=== PATIENT | female | born 1950 | race Caucasian/White ===

== ENCOUNTER → 2017-04-19 | Outpatient (CLI) | payer OTHER ==
[~2017-04-19] MED LIST: AMLO2.5T PO; ASPI81TA28 PO; CALC500C70 PO; CYCL10TA6 PO; FLUT0.0529 NAE; HYDR-5688 PO; INDSR80 PO; LISI-787 PO; PRLSR20 PO
--- NOTE | 2017-04-19 12:35 | MAMMOGRAPHY REPORT ---
BILATERAL DIGITAL SCREENING MAMMOGRAM WITH CAD: 04/19/2017 CLINICAL HISTORY: Routine screening. TECHNIQUE: Current study was also evaluated with a Computer Aided Detection (CAD) system. Bilateral CC and MLO views were obtained. COMPARISON: Comparison is made to exams dated: 04/17/2016 mammogram, 04/15/2015 mammogram, 01/13/2014 mamm ogram, 12/26/2012 mammogram, 05/29/2011 mammogram, and 05/02/2010 mammogram - [facility]. BREAST COMPOSITION: The tissue of both breasts is almost entirely fatty. FINDINGS: No suspicious masses, calcifications, or areas of architectural distortion are noted in ei ther breast. There has been no significant interval change compared to prior exams. Scattered bilater al benign-appearing calcifications are not significantly changed. IMPRESSION: ACR BI-RADS CATEGORY 2: BENIGN There is no mammographic evidence of malignancy. A 1 year screening mammogram is recommended. The pa tient will receive written notification of the results. Approximately 10% of breast cancers are not detected with mammography. A negative mammographic report should not delay biopsy if a clinically suggestive mass is present. Viki Meadows M.D. /:04/19/2017 12:16:34 Assistant Scientist: Thiago WHITTEN(Felicitas)(M), [facility] letter sent: Normal 1/2 BI-RADS Code: ACR BI-RADS Category 2: Benign
== END | disposition home or self-care (01) ==
LOC: C.MAMM 10:54
PROVIDERS: ATTEND Internal Medicine
DX: Z12.31 Encounter for screening mammogram for malignant neoplasm of breast (principal)

== ENCOUNTER 2017-07-15 05:59 | Emergency (ER) | payer OTHER ==
[~2017-07-15] VITALS: Ht 162.6 cm; Wt 135.0 kg
[2017-07-15 06:04] VITALS: TEMP 36.8; Ht 162.6 cm; Wt 135.0 kg
[2017-07-15] MEDS ORDERED: KETOROLAC TROMETHAMINE 30 MG/ML VIAL IV STA (06:38)
--- NOTE | 2017-07-15 06:39 | EMERGENCY ROOM VISIT NOTE ---
ED Visit Note First contact with patient: 06:18 Resident Physician Supervision Note: I interviewed and examined the patient. Discussed with Dr. Borrego and agree with findings and plan as documented in the note. Documented By: Casey Franks Current/Historical Medications Scheduled Amlodipine (Norvasc), 2.5 MG PO DAILY Aspirin (Aspirin Ec), 81 MG PO DAILY Calcium/Vitamin D (Os-Luis Angel 500 Plus D), 1 TAB PO DAILY Fluticasone Propionate (Nasal) (Flonase), 2 SPRAYS DESTINEY DAILY Lisinopril/Hctz (Zestoretic 20MG/12.5MG), 1 TAB PO BID Omeprazole (Prilosec), 20 MG PO BID Propranolol La (Inderal La *), 80 MG PO DAILY Scheduled PRN Cyclobenzaprine Hcl (Flexeril), 10 MG PO TID PRN for MUSCLE SPASMS Hydrocodone/Acetaminophen 5MG/325MG ([place] 5MG/325MG), 1-2 TABLETS PO Q6 PRN for Pain Allergies Coded Allergies: Codeine (Verified Allergy, Unknown, 10/22/13) Penicillins (Verified Allergy, Unknown, 10/22/13) Vital Signs Date Time Temp Pulse Resp B/P (MAP) Pulse Ox O2 Delivery O2 Flow Rate FiO2 07/15/17 06:04 36.8 76 18 175/93 98 Room Air Departure Information Referrals Nazia Chen M.D. (PCP) Patient Instructions My [facility]
[2017-07-15] MEDS ORDERED: TRAMADOL HCL 50 MG TAB PO STA (06:57)
[2017-07-15] MEDS ORDERED: LISI40TA PO (06:59)
[2017-07-15] MEDS ORDERED: ATOR-22 PO (06:59)
[2017-07-15] MEDS ORDERED: POLY335019 PO (07:01)
[2017-07-15] MEDS ORDERED: ASPCH81X PO (07:01)
[2017-07-15] MEDS ORDERED: TRAM-10 PO (07:02)
[2017-07-15] MEDS ORDERED: ALLO300T2 PO (07:02)
[2017-07-15] MEDS ORDERED: AMLO-110 PO (07:02)
[2017-07-15] MEDS ORDERED: METO25TA3 PO (07:02)
[2017-07-15] MEDS ORDERED: GABA-113 PO (07:02)
[2017-07-15] MEDS ORDERED: FURO-85 PO (07:02)
[2017-07-15] MEDS ORDERED: POTA10CA28 PO (07:02)
--- NOTE | 2017-07-15 07:20 | DIAGNOSTIC IMAGING REPORT ---
LUMBAR SPINE 2 OR 3 VIEWS HISTORY: 67 years-old Female lower back pain acute low back pain without trauma. Pain radiates into the right leg. COMPARISON: None available TECHNIQUE: 3 views of the lumbar spine FINDINGS: There are 5 lumbar type vertebral segments present. The bones appear mildly demineralized. No acute fracture or compression deformity identified. Multilevel endplate spurring, intervertebral disc space narrowing and facet arthropathy is noted. There is severe intervertebral disc space narrowing at T11-T12 and L2-L3. Severe facet arthrosis is noted at L4-L5 and L5-S1. 12 mm anterolisthesis L4 on L5 without pars defects identified is noted. Multilevel endplate spurring is seen at several levels. Vascular calcifications are noted. IMPRESSION: 1. No acute fracture of the lumbar spine. 2. Multilevel endplate spurring, intervertebral disc space narrowing and facet arthropathy as above. 3. 12 mm anterolisthesis L4 on L5 is likely secondary to long-standing severe facet arthropathy. The above report was generated using voice recognition software. It may contain grammatical, syntax or spelling errors. Electronically signed by: Pa Randall M.D. 07/15/2017 7:19 AM Dictated Date/Time: 07/15/2017 7:16 AM
--- NOTE | 2017-07-15 07:29 | EMERGENCY ROOM VISIT NOTE ---
History First contact with patient: 06:19 Chief Complaint: BACK PAIN Stated Complaint: LWR RIGHT BACK PAIN DOWN INTO LEG,RT LEG NUMBNESS History of Present Illness The patient is a 67 year old female who presents to the Emergency Room with complaints of right lower back pain radiating down her leg and into her knee. Patient reports a PMH of chronic lower back pain, but denies having pain this severe. She reports that the pain began on Saturday following bending over to put on her pants. She states that since Saturday evening the pain has gotten worse, making it difficult to ambulate or lay flat. She gets relief by sitting upright in a chair. Patient took NSAIDs and a muscle relaxants without relief yesterday and decided to come to ED this morning. There is no overlying rash, no redness warmth. Patient denies fever, abdominal pain, n/v/d. Patient denies saddle anesthesia, urinary or fecal incontinence. Patient describes the pain as sharp, radiating down her leg. She also describes some pain in her groin. Patient endorses dysuric symptoms, but denies hematuria. Review of Systems see below Constitutional: No fever, No chills, No sweats Respiratory: No cough, No sputum, No wheezing Cardiovascular: No chest pain, No orthopnea, No edema Abdomen: No pain, No nausea, No vomiting, No diarrhea Genitourinary - Female: + dysuria, + urinary frequency, No urinary incontinence, No hematuria Social History Smoking Status: Never Smoker Alcohol Use: none Marital Status: Occupation Status: retired Current/Historical Medications Scheduled Allopurinol (Zyloprim), 300 MG PO DAILY Amlodipine (Norvasc), 5 MG PO DAILY Aspirin (Aspirin Chewable), 81 MG PO DAILY Atorvastatin (Lipitor), 20 MG PO DAILY Furosemide (Lasix), 20 MG PO MWF Gabapentin (Neurontin), 300 MG PO TID Ibuprofen (Ibuprofen), 800 MG PO TID Lidocaine (Lidoderm Patch 5%), 1 PATCH BT DAILY Lisinopril (Zestril), 40 MG PO DAILY Metoprolol Succ (Toprol Xl) (Toprol-Xl), 25 MG PO DAILY Omeprazole (Prilosec), 20 MG PO BID Oxycodone/Acetaminophen 5MG/325MG (Percocet 5MG/325MG), 1 TAB PO TID Polyethylene Glycol 3350 (Miralax), 17 GM PO DAILY Potassium Chloride (Micro-K Ext Rel), 10 MEQ PO MWF Sulfa/Trimethoprim (Bactrim Ds 800MG/160MG), 1 TAB PO BID Scheduled PRN Tramadol (Ultram), 50 MG PO Q6 PRN for Pain Physical Exam Vital Signs Date Time Temp Pulse Resp B/P (MAP) Pulse Ox O2 Delivery O2 Flow Rate FiO2 07/15/17 10:46 73 18 148/92 97 07/15/17 08:42 63 18 130/71 97 Room Air 07/15/17 06:04 36.8 76 18 175/93 98 Room Air Physical Exam see below General Appearance: WD/WN, + obese Head: normocephalic, atraumatic Respiratory/Chest: chest non-tender, lungs clear, normal breath sounds, no respiratory distress, no accessory muscle use Cardiovascular: regular rate, rhythm, no edema, no gallop, no JVD, no murmur Abdomen / GI: normal bowel sounds, non tender, soft, no organomegaly, + distended Back: no CVA tenderness, + decreased range of motion, + paravertebral tenderness (right lumbar, right gluteal tenderness), + pertinent finding ( positive straight leg ) Neurologic/Psych: alert, normal mood/affect, normal reflexes Medical Decision & Procedures ER Provider Diagnostic Interpretation: LUMBAR SPINE 2 OR 3 VIEWS HISTORY: 67 years-old Female lower back pain acute low back pain without trauma. Pain radiates into the right leg. COMPARISON: None available TECHNIQUE: 3 views of the lumbar spine FINDINGS: There are 5 lumbar type vertebral segments present. The bones appear mildly demineralized. No acute fracture or compression deformity identified. Multilevel endplate spurring, intervertebral disc space narrowing and facet arthropathy is noted. There is severe intervertebral disc space narrowing at T11-T12 and L2-L3. Severe facet arthrosis is noted at L4-L5 and L5-S1. 12 mm anterolisthesis L4 on L5 without pars defects identified is noted. Multilevel endplate spurring is seen at several levels. Vascular calcifications are noted. IMPRESSION: 1. No acute fracture of the lumbar spine. 2. Multilevel endplate spurring, intervertebral disc space narrowing and facet arthropathy as above. 3. 12 mm anterolisthesis L4 on L5 is likely secondary to long-standing severe facet arthropathy. Laboratory Results Test 07/15/17 07:50 Urine Color YELLOW Urine Appearance CLEAR (CLEAR) Urine pH 6.0 (4.5-7.5) Urine Specific [place] 1.022 (1.000-1.030) Urine Protein NEG (NEG) Urine Glucose (UA) NEG (NEG) Urine Ketones NEG (NEG) Urine Occult Blood TRACE (NEG) Urine Nitrite NEG (NEG) Urine Bilirubin NEG (NEG) Urine Urobilinogen NEG (NEG) Urine Leukocyte Esterase MODERATE (NEG) Urine WBC (Auto) 5-10 /hpf (0-5) Urine RBC (Auto) 5-10 /hpf (0-4) Urine Hyaline Casts (Auto) 1-5 /lpf (0-5) Urine Epithelial Cells (Auto) >30 /lpf (0-5) Urine Bacteria (Auto) 1+ (NEG) Medications Administered Medications (Trade) Dose Ordered Sig/Vivien Route Start Time Stop Time Status Last Admin Dose Admin Ketorolac Tromethamine (Toradol Inj) 30 mg NOW STAT IV 07/15/17 06:38 07/15/17 06:44 DC 07/15/17 06:52 30 MG Tramadol HCl (Ultram Tab) 50 mg NOW STAT PO 07/15/17 06:57 07/15/17 07:00 DC 07/15/17 07:27 50 MG Lidocaine (Lidoderm Patch 5%) 1 patch QAM STAT TD 07/15/17 07:53 07/15/17 07:57 DC 07/15/17 08:04 1 PATCH Hydromorphone HCl (Dilaudid Inj) 1 mg NOW STAT IM 07/15/17 07:57 07/15/17 07:59 DC 07/15/17 08:05 1 MG Dexamethasone Sodium Phosphate (Dexamethasone Inj Pf) 10 mg STK-MED ONCE .ROUTE 07/15/17 08:00 07/15/17 08:01 DC 07/15/17 08:04 10 MG Trimethoprim/ Sulfamethoxazole (Septra 400/80MG Tab) 1 tab Q12H STAT PO 07/15/17 08:21 07/15/17 08:25 DC 07/15/17 08:44 1 TAB ED Course 700 performed history and physical 715 Ordered Lumbar Xray, Toradol, tramadol, Decadron 7:25 Accessed Lumbar Xray report 800 reaccessed patient; still in pain 1000 discussed lab findings, starting patient on Bactrim 1030 patient pain is improving, dcing patient with close follow up with Dr. Carpenter Medical Decision 67 yo female with two days of right lower back pain radiating down her right leg and into her knee. Considering the following differential; back strain, acute disc herniation, OA, spinal stenosis, infection, malignancy, renal stones , UTI Lumbar Xray showed: 1. No acute fracture of the lumbar spine. 2. Multilevel endplate spurring, intervertebral disc space narrowing and facet arthropathy as above. 3. 12 mm anterolisthesis L4 on L5 is likely secondary to long-standing severe facet arthropathy. UA was remarkable for infection Patient declined MRI because of claustrophobia. No further imaging obtained. Patient pain was controlled with; Decadron, Toradol, Tramadol and lidocaine patch Treated patient with Bactrim 160/800 14 days BID for UTI Discussed options with patient; outpatient rehab vs close follow up with orthopedics. Through shared decision-making, patient elected to follow up with ortho, Dr. Carpenter tomorrow morning. Patient was instructed to use the lidocaine patch and to take ibuprofen in the outpatient. She was also provided a short term script for Percocet, 12 tabs. Impression Primary Impression: Sciatica Departure Information Prescriptions Oxycodone/Acetaminophen 5MG/325MG (PERCOCET 5MG/325MG) Tab 1 TAB PO TID for 7 Days, #12 TAB PAIN Prov: Derik Borrego M.D. 07/15/17 Sulfa/Trimethoprim (Bactrim Ds 800MG/160MG) Tab 1 TAB PO BID for 14 Days, #28 TAB Prov: Derik Borrego M.D. 07/15/17 Ibuprofen (IBUPROFEN) 200 Mg Cap 800 MG PO TID for 30 Days, #360 TABS Prov: Derik Borrego M.D. 07/15/17 Lidocaine (Lidoderm Patch 5%) 1 Ea Tdsy 1 PATCH BT DAILY for Pain for 30 Days, #30 PATCH 3 Refills Prov: Derik Borrego M.D. 07/15/17 Referrals Nazia Chen M.D. (PCP) [facility]ructions [facility]
[2017-07-15] MEDS ORDERED: HYDROmorphone INJ 1 MG/ML SYR IV STA (07:46)
[2017-07-15] MEDS ORDERED: LIDODERM (LIDOCAINE) PATCH 5% TD STA (07:53)
[2017-07-15] MEDS ORDERED: DEXAMETHASONE SOD INJ 4 MG/ML 5 ML VIAL IM STA (07:53)
[2017-07-15] MEDS ORDERED: HYDROmorphone INJ 1 MG/ML SYR IM STA (07:57)
[2017-07-15] MEDS ORDERED: DEXAMETHASONE **PF** INJ 10 MG/ML VIAL ONE (08:00)
[2017-07-15 08:05] LABS: MANUAL MICROSCOPIC REQUIRED? NO; REVIEW REQ? NO; URINE APPEARANCE CLEAR (CLEAR); URINE BILIRUBIN NEG (NEG); URINE COLOR YELLOW; URINE EPITHELIAL CELL AUTO >30 /lpf (0-5); URINE NITRITE NEG (NEG); URINE SPECIFIC GRAVITY 1.022 (1.000-1.030); UROBILINOGEN NEG (NEG)
[2017-07-15] MEDS ORDERED: SULFAMETHOXAZOLE/TRIMETHOPRIM 400/80MG TAB PO STA (08:21)
[2017-07-15] MEDS ORDERED: IBUP1CAP9 PO (09:59)
[2017-07-15] MEDS ORDERED: NF656 BT (09:59)
[2017-07-15] MEDS ORDERED: OXYC-57 PO ×2 (09:59→10:31)
[2017-07-15] MEDS ORDERED: SULF800T23 PO (10:09)
[2017-07-15 10:46] VITALS: BP 148/92; PULSE 73; O2SAT 97
== END 2017-07-15 10:46 | disposition home or self-care (01) ==
LOC: C.EDB 06:01
DX: M54.41 Lumbago with sciatica, right side (principal); M43.16 Spondylolisthesis, lumbar region; M51.36 Other intervertebral disc degeneration, lumbar region; G89.29 Other chronic pain; Z79.82 Long term (current) use of aspirin; Z79.1 Long term (current) use of non-steroidal anti-inflammatories (NSAID)

== ENCOUNTER 2017-07-29 13:22 | Emergency (ER) | payer OTHER ==
[~2017-07-29] VITALS: Ht 162.6 cm; Wt 134.0 kg
[~2017-07-29 13:22] MED LIST changes: +ALLO300T2 PO; +AMLO-110 PO; -AMLO2.5T PO; +ASPCH81X PO; -ASPI81TA28 PO; +ATOR-22 PO; -CALC500C70 PO; -CYCL10TA6 PO; -FLUT0.0529 NAE; +FURO-85 PO; +GABA-113 PO; -HYDR-5688 PO; +IBUP1CAP9 PO; -INDSR80 PO; -LISI-787 PO; +LISI40TA PO; +METO25TA3 PO; +NF656 BT; +OXYC-57 PO; +POLY335019 PO; +POTA10CA28 PO; +SULF800T23 PO; +TRAM-10 PO
[2017-07-29 13:24] VITALS: TEMP 36.6; Ht 162.6 cm; Wt 134.0 kg
[2017-07-29] MEDS ORDERED: METH4PAK PO ×2 (13:42→14:07)
[2017-07-29] MEDS ORDERED: DEXAMETHASONE SOD INJ 4 MG/ML VIAL IV STA (13:56)
[2017-07-29] MEDS ORDERED: DEXAMETHASONE **PF** INJ 10 MG/ML VIAL IM STA (13:58)
--- NOTE | 2017-07-29 13:58 | EMERGENCY ROOM VISIT NOTE ---
ED Visit Note First contact with patient: 13:34 CHIEF COMPLAINT: Flareup of chronic low back pain HISTORY OF PRESENT ILLNESS: This 67-year-old female patient presents to the emergency department, ambulatory, complaining of pain in the right low back which began last night. The patient was seen here in the emergency department recently where an x-ray was performed. The patient is currently under the care of Dr. Carpenter. She states over the past few weeks, she has been onto Medrol Dosepaks, Lidoderm patches, and occasional pain medicine. She states the Medrol Dosepak's are the only things which seemed to help her pain. The patient finished her last course yesterday, and states last night, she began experiencing worsening flareup of her back pain. The patient did call Dr. Carpenter's office, but was told that he is in surgery, and the office staff will be unable to reach him until tomorrow. The patient states the pain is severe, and she could not wait until tomorrow. The patient has taken no OTC medications , and while she does have Lidoderm patches at home, she did not place a new patch on her back. She states she did fall approximately 10-12 days ago, but landed on her knees. She states she noticed her back pain worsening slightly after that point, but has been on the Medrol Dosepak and has seen Dr. Carpenter since then. The patient notes the pain as sharp and constant and a 10/10. The patient denies any loss of control of their bowel or bladder functions. There has been no leg numbness or weakness, and no change in sensation. No nausea or vomiting or abdominal pain. No chest pain or shortness of breath. The patient has not had prior back injuries. She states she has been advised that she needs an MRI to fully diagnose the problem, but states she is unable to lie flat to have this test performed. No dysuria or increased urinary frequency. REVIEW OF SYSTEMS: A 10 system review of systems was performed with positives and pertinent negatives listed in the history of present illness. All other systems were reviewed and are negative. ALLERGIES: Codeine, penicillin MEDICATIONS: See list in chart PMH: Hypertension, edema SOCIAL HISTORY: The patient lives locally with family. She denies drug, alcohol , tobacco use. PHYSICAL EXAM: VITALS: Vitals are noted on the nurse's note and reviewed by myself. Vital signs stable. GENERAL: This is a 67-year-old obese white female, in no acute distress, nondiaphoretic, well-developed well-nourished. SKIN: The skin was without rashes, erythema, edema, or bruising. Capillary refill less than 2 seconds. NECK: Supple without nuchal rigidity. No cervical spine tenderness. No paraspinous muscle tenderness. HEART: Regular rate and rhythm without murmurs gallops or rubs. LUNGS: Clear to auscultation bilaterally without wheezes, rales or rhonchi. ABDOMEN: Positive bowel sounds x 4. Normal tympanic percussion. Soft, nontender, without masses or organomegaly. Reid sign negative. MUSCULOSKELETAL: No muscle atrophy, erythema, or edema noted of the back. There is no tenderness over the lumbar spinous processes. There is mild tenderness over the paraspinous muscles in the right. There is no tenderness over the thoracic spine or paraspinous muscles. There are no muscle spasms present. The patient is slow to move around with maximum tenderness with position changes. Positive straight leg raise test on the right. NEURO: Patient was alert and oriented to person place and time. Normal sensation to light and sharp touch. Deep tendon reflexes 2+ in the lower extremities. Dorsalis pedis pulse 2+ bilaterally. Strength 5/5 and equal in the bilateral lower extremities. EMERGENCY DEPARTMENT COURSE: The patient was seen and evaluated as above. She did recently have imaging, declines any further imaging at this time. She is under the care of Dr. Carpenter and has an appointment scheduled for Saturday. She feels that she cannot wait until Saturday to have her pain addressed. The patient was given 10 mg Decadron here in the emergency department, and will be started on another Medrol dose pack to get her through until she is able to see her spine surgeon on Saturday. The patient will be given a very short course of Percocet to help with breakthrough pain. I did encourage her to place a Lidoderm patch on her back to help with the pain as well. The patient was independently seen and evaluated by Dr. Villalta. Discharge instructions reviewed , and the patient was discharged home in good condition. I attest that I have personally reviewed the patient's current medication list. Blood Pressure Screening: Patient was found to have a slightly elevated blood pressure due to circumstances. I do not believe that the patient requires hypertension monitoring. DIFFERENTIAL DIAGNOSIS: Lumbar strain, sprain, contusion, disc protrusion, sciatica, disc herniation, fracture, Cauda Equina syndrome, abscess or infection , degenerative disc disease, malignancy, and others DIAGNOSIS: Sciatica Current/Historical Medications Scheduled Allopurinol (Zyloprim), 300 MG PO DAILY Amlodipine (Norvasc), 5 MG PO DAILY Aspirin (Aspirin Chewable), 81 MG PO DAILY Atorvastatin (Lipitor), 20 MG PO DAILY Furosemide (Lasix), 20 MG PO MWF Gabapentin (Neurontin), 300 MG PO TID Ibuprofen (Ibuprofen), 800 MG PO TID Lisinopril (Zestril), 40 MG PO DAILY Methylprednisolone (Medrol Dosepak), 1 PKT PO UD Methylprednisolone (Medrol Dosepak), 0 PO DAILY Metoprolol Succ (Toprol Xl) (Toprol-Xl), 25 MG PO DAILY Omeprazole (Prilosec), 20 MG PO BID Polyethylene Glycol 3350 (Miralax), 17 GM PO DAILY Potassium Chloride (Micro-K Ext Rel), 10 MEQ PO MWF Scheduled PRN Oxycodone/Acetaminophen 5MG/325MG (Percocet 5MG/325MG), 1 TAB PO Q6H PRN for Pain Allergies Coded Allergies: Codeine (Verified Allergy, Unknown, 07/29/17) Penicillins (Verified Allergy, Unknown, 07/29/17) Vital Signs Date Time Temp Pulse Resp B/P (MAP) Pulse Ox O2 Delivery O2 Flow Rate FiO2 07/29/17 14:16 106 18 131/77 98 Room Air 07/29/17 13:24 36.6 57 18 183/97 100 Room Air Medications Administered Medications (Trade) Dose Ordered Sig/Vivien Route Start Time Stop Time Status Last Admin Dose Admin Dexamethasone Sodium Phosphate (Dexamethasone Inj Pf) 10 mg NOW STAT IM 07/29/17 13:58 07/29/17 14:00 DC 07/29/17 14:07 10 MG Departure Information Impression Primary Impression: Sciatica Dispostion Home / Self-Care Condition GOOD Prescriptions Methylprednisolone (MEDROL DOSEPAK) 4 Mg Betito 0 PO DAILY, #1 PKT Prov: Laura Sy, PA-C 07/29/17 Oxycodone/Acetaminophen 5MG/325MG (PERCOCET 5MG/325MG) Tab 1 TAB PO Q6H Y for Pain, #8 TAB For Initial Treatment Prov: Laura Sy PA-C 07/29/17 Referrals Nazia Chen M.D. (PCP) Patient Instructions ED [facility], [facility] Additional Instructions You have been treated in the Emergency Department for Back Pain. You have been prescribed Percocet to be used for pain control. This is a narcotic medication. You cannot drive or consume alcohol while on this medicine. This medicine should only be used for pain that cannot be controlled with [id number] pain medicines. For pain control, you can use the following [id number] medicines (if >12 yo): Ibuprofen(Motrin, Advil) may be used for fever or pain. Use 600mg every six hours as needed. Take with food. Avoid using more than 2400mg in a 24 hour period. Do not use 2400mg per day for more than three consecutive days without physician direction. Prolonged inappropriate use can lead to stomach upset or ulcers. (AND/OR) Acetaminophen(Tylenol) may be used for fever or pain. Use 1000mg every six hours as needed. Avoid using more than 3000mg in a 24 hour period. If this is an acute injury, ice can be applied to the area of pain for the first 3 days to help decrease pain and inflammation. After the first 3 days, a heating pad can be used over the area for continued soothing relief. Follow-up at your scheduled appointment on Saturday with Dr. Carpenter for further evaluation and treatment of your back pain. Return to the Emergency Department if your current symptoms worsen despite treatment course outlined above, or if you develop any of the following symptoms : intractable pain despite aforementioned treatment course, loss of control of your bowel or bladder, numbness or tingling in your groin, or development of a fever. Problem Qualifiers Primary Impression: Sciatica Laterality: right Qualified Codes: M54.31 - Sciatica, right side
[2017-07-29] MEDS ORDERED: OXYC-57 PO (14:07)
--- NOTE | 2017-07-29 14:14 | EMERGENCY ROOM VISIT NOTE ---
ED Visit Note First contact with patient: 13:34 Staff note: I have reviewed the Patients chart and have discussed this case with my PA. I generally agree with the ED note and findings.
[2017-07-29 14:16] VITALS: BP 131/77; PULSE 106; O2SAT 98
== END 2017-07-29 14:21 | disposition home or self-care (01) ==
LOC: C.EDB 13:24 → C.EDD 14:21
DX: M53.3 Sacrococcygeal disorders, not elsewhere classified (principal); I10 Essential (primary) hypertension; Z88.0 Allergy status to penicillin; Z88.5 Allergy status to narcotic agent; Z79.82 Long term (current) use of aspirin; Z79.899 Other long term (current) drug therapy